=== PATIENT | male | born 1990 | race Caucasian/White ===

== ENCOUNTER 2018-04-27 09:04 | Emergency (ER) | payer OTHER ==
[2018-04-27 09:11] VITALS: BP 157/89
[2018-04-27] MEDS ORDERED: PROPARACAINE 0.5% OPHTH DROPS 15 ML RIGHTEYE STA (09:13)
--- NOTE | 2018-04-27 09:32 | ED Physician Documentation ---
PD HPI OPHTHO - Stated complaint Stated Complaint: OBJECT IN EYE - Chief complaint Chief Complaint: Heent - History obtained from History obtained from: Patient - History of Present Illness Timing - onset: Today Timing - duration: Minutes Timing - details: Abrupt onset, Still present Location: Left Quality / character: Sharp. No: Itching, Burning, Aching, Throbbing Associated symptoms: FB sensation. No: Redness, Swelling, Tearing, Discharge, Matting, Photophobia, Double vision, Decreased vision, Loss of vision, Headache Contributing factors: FB. 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 He continues to have foreign body sensation and he states that he was not welding at the time and he was not grinding. He states that there is a lot of metal dust in the air at his work. Review of Systems Constitutional: denies: Fever Eyes: reports: Irritation. denies: Loss of vision, Decreased vision, Photophobia, Discharge Ears: denies: Ear pain Nose: denies: Rhinorrhea / runny nose, Congestion Throat: denies: Sore throat Respiratory: denies: Cough PD PAST MEDICAL HISTORY - Past Medical History Past Medical History: No - Past Surgical History Past Surgical History: Yes - Present Medications Home Medications: Ambulatory Orders Medication Instructions Recorded Confirmed Neomycin/Poly/Dex Ophth Drops 1 drops LEFTEYE QID #1 bottle 04/27/18 [Maxitrol Ophth Drops] - Allergies Allergies/Adverse Reactions: Allergies Allergy/AdvReac Type Severity Reaction Status Date / Time scallops Allergy Nausea Verified 04/27/18 09:10 - Social History Does the pt smoke?: No Smoking Status: Never smoker Does the pt drink ETOH?: No Does the pt have substance abuse?: No - Immunizations Immunizations are current?: Yes PD ED PE NORMAL - Vitals Vital signs reviewed: Yes (hypertensive ) - General General: Alert and oriented X 3, No acute distress, Well developed/nourished - HEENT HEENT: Atraumatic, PERRL, EOMI, Other (There is minimal injection to the left eye. There is no fb with eversion of the upper lid and there is a tiny "dot" of fluoruscien uptake in the lateral aspect of the left cornea. 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 He appears fairly comfortable and we will place him on some Maxitrol ophthalmic drops. Departure - Departure Disposition: 01 Home, Self Care Clinical Impression: Corneal abrasion, left Qualifiers: Encounter type: initial encounter Qualified Code(s): S05.02XA - Injury of conjunctiva and corneal abrasion without foreign body, left eye, initial encounter Condition: Stable Instructions: ED Eye Injury Corneal Abrasion Follow-Up: Luis A Rosario MD [Provider Admit Priv/Credential] - Prescriptions: Neomycin/Poly/Dex Ophth Drops [Maxitrol Ophth Drops] 1 drops LEFTEYE QID #1 bottle
== END 2018-04-27 09:48 | disposition home or self-care (01) ==
LOC: ED 09:04
DX: S05.02XA Injury of conjunctiva and corneal abrasion without foreign body, left eye, initial encounter (principal); W26.8XXA Contact with other sharp object(s), not elsewhere classified, initial encounter; Y93.9 Activity, unspecified; Y92.69 Other specified industrial and construction area as the place of occurrence of the external cause; Y99.0 Civilian activity done for income or pay
CPT/HCPCS: 99282; 99283; J3490

== ENCOUNTER 2019-10-10 07:35 | Emergency (ER) | payer OTHER ==
[2019-10-10 07:47] VITALS: BP 150/100
--- NOTE | 2019-10-10 08:00 | ED Physician Documentation ---
PD HPI OPHTHO - Stated complaint Stated Complaint: FB LT EYE - Chief complaint Chief Complaint: Heent - History obtained from History obtained from: Patient - History of Present Illness Timing - onset: Yesterday Timing - duration: Days (1) Timing - details: Gradual onset Pain level max: 3 Pain level now: 3 Location: Left Quality / character: Aching Associated symptoms: FB sensation. 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 No: Wears glasses, Wears contacts Similar symptoms before: Has not had sx before Recently seen: Not recently seen Review of Systems Constitutional: denies: Fever Eyes: denies: Loss of vision, Decreased vision Respiratory: denies: Cough GI: denies: Nausea, Vomiting, Diarrhea PD PAST MEDICAL HISTORY - Past Surgical History Past Surgical History: Yes - Present Medications Home Medications: Ambulatory Orders Medication Instructions Recorded Confirmed Neomycin/Poly/Dex Ophth Drops 1 drops LEFTEYE QID #1 bottle 04/27/18 [Maxitrol Ophth Drops] Polymyxin B/Trimeth Ophth Drop 1 drops LEFTEYE Q3H 7 Days #1 10/10/19 [Polytrim Ophth Drops] bottle - Allergies Allergies/Adverse Reactions: Allergies Allergy/AdvReac Type Severity Reaction Status Date / Time scallops Allergy Nausea Verified 04/27/18 09:10 - Social History Does the pt smoke?: No Smoking Status: Never smoker Does the pt drink ETOH?: No Does the pt have substance abuse?: No - Immunizations Immunizations are current?: Yes PD ED PE NORMAL - Vitals Vital signs reviewed: Yes - General General: Alert and oriented X 3, No acute distress, Well developed/nourished - HEENT HEENT: Moist mucous membranes, Other (No visible foreign body. Mild fluorescein uptake on the upper cornea. Eyelids everted. No drainage. Left eye) - Neck Neck: Supple, no meningeal sign - Cardiac Cardiac: RRR - Respiratory Respiratory: No respiratory distress - Derm Derm: Warm and dry - Neuro Neuro: Alert and oriented X 3 Results - Vitals Vitals: Vital Signs - 24 hr 10/10/19 07:44 Temperature 36.7 C Heart Rate 78 Respiratory 18 Rate Blood Pressure 150/100 H O2 Saturation 98 Oxygen O2 Source Room air PD MEDICAL DECISION MAKING - ED course Complexity details: considered differential, d/w patient ED course: Patient with a small corneal abrasion over the left cornea. Will place on Polytrim ophthalmic. No evidence of UV keratitis. No evidence of iritis. No drainage. Patient counseled regarding signs and symptoms for which I believe and urgent re-evaluation would be necessary. Patient with good understanding of and agreement to plan and is comfortable going home at this time This document was made in part using voice recognition software. While efforts are made to proofread this document, sound alike and grammatical errors may occur. Departure - Departure Disposition: Home, Self Care Clinical Impression: Corneal abrasion, left Qualifiers: Encounter type: initial encounter Qualified Code(s): S05.02XA - Injury of conjunctiva and corneal abrasion without foreign body, left eye, initial encounter Condition: Good Instructions: ED Eye Injury Corneal Abrasion Follow-Up: Luis A Rosario MD [Provider Admit Priv/Credential] - Within 3 Days Prescriptions: Polymyxin B/Trimeth Ophth Drop [Polytrim Ophth Drops] 1 drops LEFTEYE Q3H 7 Days #1 bottle Comments: Use the anitbiotic drops as prescribed. Follow up with ophthalmology for further care. Discharge Date/Time: 10/10/19 08:05
== END 2019-10-10 08:05 | disposition home or self-care (01) ==
LOC: ED 07:35
DX: S05.02XA Injury of conjunctiva and corneal abrasion without foreign body, left eye, initial encounter (principal); X58.XXXA Exposure to other specified factors, initial encounter; Y93.89 Activity, other specified; Y99.0 Civilian activity done for income or pay
CPT/HCPCS: 1040M; 99282; 99284

== ENCOUNTER 2024-02-13 11:59 | Observation (INO) ==
--- NOTE | 2024-02-13 12:09 | ED Physician Documentation ---
History of Present Illness Stated complaint Stated Complaint: ABD PX Chief complaint Chief Complaint: Abd Pain History obtained from History obtained from: Patient and EMS Additonal information Additional information: 33-year-old gentleman with heavy alcohol use presents by ambulance for relatively sudden onset epigastric pain that is nonradiating this morning. It was associated with a single episode of emesis after he tried to "choke a bunch of water and take some Pepto-Bismol." He denies fevers. No history of this. No history of abdominal surgeries. No blood in the vomit. Prehospital EKG was normal. Meds/Allgy Home Medications Ambulatory Orders Medication Instructions Recorded Confirmed [id number] 3.5 1 drp LEFTEYE QID ##1 04/27/18 mg/mL-10,000 unit/mL-0.1% eye drops polymyxin B sulfate 10,000 1 drp LEFTEYE Q3H 7 days ##1 10/10/19 unit-trimethoprim 1 mg/mL eye drops Allergies Allergies Allergy/AdvReac Type Severity Reaction Status Date / Time scallops Allergy Nausea Verified 02/13/24 12:11 [facility] Social History Social History Smoking Status: Never smoker Do you feel safe in your home environment?: Yes Suffered physical, verbal, emotional, or financial abuse?: No History of Abuse: No Exam Constitutional normal general appearance and no apparent distress Respiratory breath sounds equal bilaterally, normal respiratory effort and clear to auscultation bilaterally Cardiovascular normal heart rate noted, regular rhythm noted and no murmur Gastrointestinal abdomen soft to palpation upper abd TTP, no surgical signs./ Neurology GCS 15 Results Vitals Vitals: Vital Signs - 24 hr 02/13/24 12:08 02/13/24 12:26 02/13/24 13:11 Temperature 36.7 C Temperature Source Temporal Artery Scan Pulse Rate 94 Respiratory Rate 18 Blood Pressure 123/90 O2 Saturation 100 O2 Source Room air Pain Intensity 8 8 7 02/13/24 13:21 02/13/24 15:03 02/13/24 15:03 Temperature 36.8 C Temperature Source Temporal Artery Scan Pulse Rate 94 Respiratory Rate 18 Blood Pressure 132/87 H O2 Saturation 98 O2 Source Room air Pain Intensity 7 5 Oxygen O2 Source Room air EKG (time done) 1328: EKG releavant findings:: EKG personally interpreted by author of this note. Relevant findings are: Twelve-lead EKG demonstrates normal sinus rhythm with rate of 87, CESAR pattern without ST depression. Labs Labs: Laboratory Tests 02/13/24 12:15 WBC 4.5 L RBC 4.79 Hgb 15.1 Hct 44.2 MCV 92.3 MCH 31.5 H MCHC 34.2 RDW 13.9 Plt Count 266 MPV 9.2 Neut # (Auto) 3.3 Lymph # (Auto) 0.9 L [place] # (Auto) 0.3 Eos # (Auto) 0.0 Baso # (Auto) 0.0 Absolute Nucleated RBC 0.00 Nucleated RBC % 0.0 Sodium 142 Potassium 4.2 Chloride 103 Carbon Dioxide 29 Anion Gap 10.0 BUN 16 Creatinine 0.8 Estimated GFR (MDRD) 112 Glucose 149 H Calcium 8.7 Total Bilirubin 0.5 AST 128 H ALT 115 H Alkaline Phosphatase 91 Total Protein 6.5 Albumin 4.3 Globulin 2.2 Albumin/Globulin Ratio 2.0 Lipase 564 H Ethyl Alcohol 294.6 Rads (name of study) CT abdomen pelvis showing pancreatitis without complication: Relevant Findings:: Final report received and EMP independent interpretation of test PD Medical Decision Making ED course ED course: He presents with epigastric pain radiating up, EKG nonischemic. Difficult to control his pain. He is an alcoholic. Workup demonstrates lymphocytosis, elevated lipase and elevated liver enzymes. Blood alcohol 294 despite him not drinking since midnight last night so presume it was at least 500 then. Difficult to control his pain and I spoke with the hospitalist for admission at 3:08 PM. The patient and family are counseled as to the diagnosis and need for admission. This document was made in part using voice recognition software, while efforts are made to proofread this document, sound alike an grammatical errors may occur. Discharge Plan Discharge Patient Disposition: ED Place in Observation Condition: Serious Clinical Impression: Pancreatitis, Alcoholism
[2024-02-13] MEDS: ONDANSETRON 4 MG/2 ML VIAL IVP STA (12:26)
[2024-02-13] MEDS: HYDROmorphone 1 MG/ML CARPUJECT IVP STA ×2 (12:26→15:34)
[2024-02-13] MEDS: SODIUM CHLORIDE 0.9% 1,000 ML IV STA (12:27)
[2024-02-13 12:42] LABS: BASOPHILS % (AUTO) 0.4 %; HCT - HEMATOCRIT 44.2 % (42.0-52.0); HGB - HEMOGLOBIN 15.1 g/dL (14.0-18.0); LYMPHOCYTES # (AUTO) 0.9 10^3/uL (1.5-3.5); LYMPHOCYTES % (AUTO) 20.7 %; MEAN CORPUSCULAR HEMOGLOBIN 31.5 pg (27.0-31.0); MEAN CORPUSCULAR HGB CONC 34.2 g/dL (32.0-36.0); MEAN CORPUSCULAR VOLUME 92.3 fL (80.0-94.0); MEAN PLATELET VOLUME 9.2 fL (7.4-11.4); MONOCYTES # (AUTO) 0.3 10^3/uL (0.0-1.0); MONOCYTES % (AUTO) 6.2 %; NEUTROPHILS # (AUTO) 3.3 10^3/uL (1.5-6.6); NEUTROPHILS % (AUTO) 72.5 %; PLT - PLATELET COUNT 266 10^3/uL (130-450); RED BLOOD COUNT 4.79 10^6/uL (4.70-6.10); RED CELL DISTRIBUTION WIDTH 13.9 % (12.0-15.0); WHITE BLOOD COUNT 4.5 x10^3/uL (4.8-10.8)
[2024-02-13 12:58] LABS: ALBUMIN 4.3 g/dL (3.2-5.5); BILIRUBIN,TOTAL 0.5 mg/dL (0.2-1.0); CALCIUM 8.7 mg/dL (8.5-10.3); CREATININE 0.8 mg/dL (0.6-1.3); ETOH - ETHANOL 294.6 mg/dL; POTASSIUM 4.2 mmol/L (3.5-4.5); TOTAL PROTEIN 6.5 g/dL (6.4-8.9)
[2024-02-13] MEDS: MORPHINE 10 MG/ML VIAL IVP STA (13:21)
[2024-02-13] MEDS: PANTOPRAZOLE 40 MG VIAL IVP STA (13:22)
[2024-02-13] MEDS ORDERED: iohexoL-300 100 ML VIAL ONE (14:15)
--- NOTE | 2024-02-13 14:57 | CT Report ---
PROCEDURE: CT Abdomen/Pelvis W INDICATIONS: IV only, upper abd pain CONTRAST: omni 300, 100 TECHNIQUE: After the administration of intravenous contrast, a CT scan of the abdomen and pelvis was performed. Images were recorded and evaluated at appropriate window settings. Reformats: coronal and sagittal. F or radiation dose reduction, the following was used: automated exposure control, adjustment of mA and /or kV according to patient size. COMPARISON: None. FINDINGS: Image quality: Diagnostic Lower chest: Basal atelectasis. No pleural effusions. Mildly patulous distal esophagus Liver: Unremarkable Gallbladder and biliary system: Unremarkable, nondilated Pancreas: Mild to moderate peripancreatic edematous fat stranding and fluid Spleen: Nonenlarged Adrenals: 9 mm left adrenal nodule. Kidneys: No solid mass. No hydronephrosis. Vessels and lymph nodes: The main portal vein is patent. No abdominal aortic aneurysm. No pathologic lymph nodes by size criteria. Bowel and peritoneum: No evidence of small bowel obstruction. No pathologic ascites. No drainable abs cess. Nondilated appendix Body wall: Unremarkable Pelvis: Bladder is unremarkable. Prostate is heterogeneous not well assessed on this study Bones: No acute or suspicious osseous findings. IMPRESSION: Acute interstitial pancreatitis. No drainable fluid collection. Other findings above. Reviewed by: Narayan Lujan MD on 02/13/2024 1:56 PM [facility] Approved by: Narayan Lujan MD on 02/13/2024 1:56 PM [facility] Station ID: [id number]
[2024-02-13] MEDS: THIAMINE 100 MG/1 ML 2 ML MDV IVP STA (15:33)
--- NOTE | 2024-02-13 15:42 | HISTORY & PHYSICAL EXAMINATION ---
Chief Complaint Chief Complaint Chief Complaint: Abdominal pain History of Present Illness Admitted From Admitted From:: Home History Obtained From History obtained from: EMR, patient interview Exam Limitations: None History of Present Illness HPI Comment/Other: 33-year-old male with PMH significant for heavy alcohol use presents with sudden onset epigastric pain this morning. He did have 1 episode of emesis after he tried to drink water and take Pepto-Bismol. He reports that between him and his girlfriend, they drink 12 beers and 1/5 of liquor every night. He reports that he wants to stop drinking. Last drink was at 2 AM today In the ER, lipase was checked and found to be 564. CT abdomen/pelvis was performed which showed acute interstitial pancreatitis without drainable fluid collection as well as a 9 mm left adrenal nodule. Hospitalist was contacted for admission for acute pancreatitis and impending delirium tremens Meds/Allgy Home Medications Ambulatory Orders Medication Instructions Recorded Confirmed [id number] 3.5 1 drp LEFTEYE QID ##1 04/27/18 mg/mL-10,000 unit/mL-0.1% eye drops polymyxin B sulfate 10,000 1 drp LEFTEYE Q3H 7 days ##1 10/10/19 unit-trimethoprim 1 mg/mL eye drops Allergies Allergies Allergy/AdvReac Type Severity Reaction Status Date / Time scallops Allergy Nausea Verified 02/13/24 12:11 PFSH Social History Social History Smoking Status: Never smoker Do you feel safe in your home environment?: Yes Suffered physical, verbal, emotional, or financial abuse?: No History of Abuse: No Review of Systems Status of ROS: 10 or more systems reviewed and unremarkable except as noted in history and below Constitutional Denies: Fever or Chills Cardiovascular Denies: Irregular heart rate, chest pain, palpitations or shortness of breath with exertion Respiratory Denies: Shortness of breath or Cough Gastrointestinal Reports: Abdominal pain, Nausea and Vomiting Exam Constitutional normal general appearance and no apparent distress HENMT normocephalic, head/scalp atraumatic and oral mucous membranes abnormal (dry) Eyes PERRL Neck/C-Spine visual inspection normal Chest inspection of chest normal Respiratory breath sounds equal bilaterally Cardiovascular normal heart rate noted Gastrointestinal tender to palpation (mild) (Primary left upper quad) Extremities normal to inspection and normal to palpation 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 for tonight (2) Alcohol abuse with alcohol-induced disorder: Plan: CIWA protocol with as needed Ativan Librium scheduled 25 mg Social work consult Banana bag Daily MVI, thiamine, folate Last drink 02/13/2024 at 0200 I expect withdrawal to be worse 48 hours after last drink Plan Placed in observation Full code He names his girlfriend as his surrogate decision-maker Lab Results Lab results reviewed: Yes 02/13/24 12:15 02/13/24 12:15 Core Measures Anticipated LOS I expect patient to be DC'd or transferred within 96 hours.: Yes DVT/VTE - Prophylaxis VTE/DVT Device ordered at admit?: No VTE/DVT Prophylaxis med ordered at admit?: Yes
[2024-02-13] MEDS ORDERED: ONDANSETRON ODT 4 MG TABLET TL PRN (16:28)
[2024-02-13] MEDS ORDERED: SODIUM CHLORIDE FLUSH 0.9% 10 ML SYRINGE IVP PRN (16:28)
[2024-02-13] MEDS ORDERED: ONDANSETRON 4 MG/2 ML VIAL IVP PRN (16:28)
[2024-02-13] MEDS ORDERED: LORazepam 2 MG/ML VIAL IVP PRN (16:28)
[2024-02-13 17:07] LABS: BASOPHILS % (AUTO) 0.1 %; EOSINOPHILS % (AUTO) 0.1 %; HCT - HEMATOCRIT 42.2 % (42.0-52.0); HGB - HEMOGLOBIN 14.3 g/dL (14.0-18.0); LYMPHOCYTES % (AUTO) 7.1 %; MEAN CORPUSCULAR HEMOGLOBIN 31.4 pg (27.0-31.0); MEAN CORPUSCULAR HGB CONC 33.9 g/dL (32.0-36.0); MEAN CORPUSCULAR VOLUME 92.5 fL (80.0-94.0); MONOCYTES # (AUTO) 0.9 10^3/uL (0.0-1.0); NEUTROPHILS # (AUTO) 11.4 10^3/uL (1.5-6.6); NEUTROPHILS % (AUTO) 85.5 %; PLT - PLATELET COUNT 244 10^3/uL (130-450); RED BLOOD COUNT 4.56 10^6/uL (4.70-6.10); RED CELL DISTRIBUTION WIDTH 14.2 % (12.0-15.0); WHITE BLOOD COUNT 13.4 x10^3/uL (4.8-10.8)
[2024-02-13] MEDS: iohexoL-300 100 ML VIAL IVP ONE (17:07)
[2024-02-13 17:09] LABS: INR 1.2 (0.8-1.2); PT - PROTHROMBIN TIME 13.5 secs (9.9-12.6)
[2024-02-13 17:17] LABS: ALBUMIN 4.1 g/dL (3.2-5.5); ALBUMIN/GLOBULIN RATIO 1.4 (1.0-2.2); BILIRUBIN,TOTAL 0.5 mg/dL (0.2-1.0); CALCIUM 7.8 mg/dL (8.5-10.3); CREATININE 0.8 mg/dL (0.6-1.3); POTASSIUM 4.1 mmol/L (3.5-4.5); TOTAL PROTEIN 7.1 g/dL (6.4-8.9)
[2024-02-13] MEDS: MULTIVITAMIN IV SCH (17:39)
[2024-02-13] MEDS: THIAMINE IV SCH (17:39)
[2024-02-13] MEDS: chlordiazePOXIDE 25 MG CAPSULE PO SCH (17:39)
[2024-02-13] MEDS: [UNRECOGNIZED DRUG - OTHER] IV SCH (17:39)
[2024-02-13] MEDS: MAGNESIUM SULFATE IV SCH (17:39)
[2024-02-13] MEDS: SODIUM CHLORIDE FLUSH 0.9% 10 ML SYRINGE IVP SCH (18:31)
[2024-02-13] MEDS: MAG HYDROX/AL HYDROX/SIMETH 30 ML UDC PO PRN (19:03)
[2024-02-13] MEDS: SODIUM CHLORIDE 0.9% 1,000 ML IV SCH (19:04)
[2024-02-14] MEDS: DEXTROSE 5%-0.45% NACL 1,000 ML IV STA (01:28)
[2024-02-14] MEDS: LIDOCAINE VISCOUS 2% 15 ML UDC MM PRN (04:52)
[2024-02-14 06:04] LABS: BASOPHILS % (AUTO) 0.3 %; EOSINOPHILS % (AUTO) 0.2 %; HCT - HEMATOCRIT 39.9 % (42.0-52.0); HGB - HEMOGLOBIN 13.2 g/dL (14.0-18.0); LYMPHOCYTES # (AUTO) 1.5 10^3/uL (1.5-3.5); LYMPHOCYTES % (AUTO) 12.1 %; MEAN CORPUSCULAR HEMOGLOBIN 30.8 pg (27.0-31.0); MEAN CORPUSCULAR HGB CONC 33.1 g/dL (32.0-36.0); MEAN PLATELET VOLUME 9.3 fL (7.4-11.4); MONOCYTES # (AUTO) 1.1 10^3/uL (0.0-1.0); MONOCYTES % (AUTO) 8.7 %; NEUTROPHILS % (AUTO) 78.5 %; PLT - PLATELET COUNT 226 10^3/uL (130-450); RED BLOOD COUNT 4.29 10^6/uL (4.70-6.10); RED CELL DISTRIBUTION WIDTH 14.1 % (12.0-15.0); WHITE BLOOD COUNT 12.7 x10^3/uL (4.8-10.8)
[2024-02-14 06:19] LABS: ALBUMIN 3.6 g/dL (3.2-5.5); ALBUMIN/GLOBULIN RATIO 1.4 (1.0-2.2); CALCIUM 7.3 mg/dL (8.5-10.3); CREATININE 0.8 mg/dL (0.6-1.3); MAGNESIUM 2.1 mg/dL (1.7-2.3); PHOSPHORUS 2.1 mg/dL (2.5-5.0); POTASSIUM 4.1 mmol/L (3.5-4.5); TOTAL PROTEIN 6.1 g/dL (6.4-8.9)
[2024-02-14] MEDS: THIAMINE 100 MG TABLET PO SCH (08:13)
[2024-02-14] MEDS: ENOXAPARIN 40 MG/0.4 ML SYRINGE SUBQ SCH (08:13)
[2024-02-14] MEDS: PRENATAL VITAMIN TABLET PO SCH (08:13)
[2024-02-14] MEDS: GI COCKTAIL 120 ML BOTTLE PO PRN (09:55)
--- NOTE | 2024-02-14 11:14 | PHARMACY PROGRESS NOTE ---
Best Possible Medication History Admit Date and Time: 02/13/24 1532 Home Medications Medication Instructions Recorded Confirmed Type acetaminophen 325 mg tablet 325 mg PO Q4H PRN fever or pain 02/14/24 02/14/24 History ibuprofen 200 mg tablet (IBU-200) 200 mg PO Q8H PRN fever or pain 02/14/24 02/14/24 History Processed by: Pharmacy (Medication Reconciliation completed by pharmacy intake coordinatorAlonzo) Medications reviewed in ED?: No Medication History completed: Yes Patient Interview: Completed Secondary Source(s): Insurance records [facility] Statement: As the person ultimately responsible for medication therapy, providers are able to order a medication from an existing home medication list in [facility] via the "Reconcile Routine" prior to Confirmation of that medication by customer support coordinator. Such practice is discouraged except when the physician, in their clinical judgment, deems that a medical need exists for a medication without regard to previous use.
[2024-02-14] MEDS: NEUTRA-PHOS 250 MG TABLET PO SCH (11:52)
--- NOTE | 2024-02-14 12:32 | PROVIDER PROGRESS NOTE ---
Subjective Prog Note Date Prog Note Date: 02/14/24 Subjective Pt reports feeling: Improved Current Medications Current Medications Current Medications: Current Medications Generic Name Dose Route Start Last Admin Trade Name Freq PRN Reason Stop Dose Admin Al Hydroxide/Mg Hydroxide 30 ml 02/13/24 18:26 02/13/24 23:51 Mag Hydrox/Al Hydrox/Simeth 30 Ml Udc PO 30 ml Q4HR PRN Administration INDIGESTION Chlordiazepoxide HCl 10 mg 02/14/24 12:28 Chlordiazepoxide 5 Mg Capsule PO Q6H BRODIE Enoxaparin Sodium 40 mg 02/14/24 09:00 02/14/24 08:18 Enoxaparin 40 Mg/0.4 Ml Syringe SUBQ Not Given DAILY BRODIE Sodium Chloride 1,000 mls @ 200 mls/hr 02/13/24 16:28 02/14/24 10:37 Normal Saline 0.9% IV 200 mls/hr .Q5H BRODIE Administration Lidocaine HCl 5 ml 02/14/24 03:19 02/14/24 11:52 Lidocaine Viscous 2% 15 Ml Udc MM 5 ml Q4H PRN Administration Mouth Sore Pain Lorazepam 2 mg 02/13/24 16:28 Lorazepam 2 Mg/Ml Vial IVP Q30M PRN CIWA >8 Protocol Multi-Ingredient Mouthwash/Gargle 30 ml 02/13/24 17:40 02/14/24 09:55 Gi Cocktail 120 Ml Bottle PO 30 ml Q4H PRN Administration Abdominal Pain Ondansetron HCl 4 mg 02/13/24 16:28 Ondansetron Odt 4 Mg Tablet TL Q6HR PRN Nausea / Vomiting Ondansetron HCl 4 mg 02/13/24 16:28 Ondansetron 4 Mg/2 Ml Vial IVP Q6HR PRN Nausea / Vomiting Multivit/Folic Acid/Iron 1 tab 02/14/24 09:00 02/14/24 08:13 Vitamin Tablet PO 1 tab DAILY BRODIE Administration Sodium Chloride 10 ml 02/13/24 16:28 Sodium Chloride Flush 0.9% 10 Ml Syringe IVP PRN PRN NEEDED PER PROVIDER ORDERS Sodium Chloride 10 ml 02/13/24 17:00 02/14/24 09:54 Sodium Chloride Flush 0.9% 10 Ml Syringe IVP Not Given 0100,0900,1700 [facility] Sodium Phosphate 250 mg 02/14/24 12:00 02/14/24 11:52 Neutra-Phos 250 Mg Tablet PO 250 mg TIDWM BRODIE Administration Thiamine HCl 100 mg 02/14/24 09:00 02/14/24 08:13 Thiamine 100 Mg Tablet PO 100 mg DAILY BRODIE Administration Objective Vital Signs/Intake & Output Reviewed Vital Signs: Yes Vital Signs: Vital Signs x48h Temp Pulse Resp BP Pulse Ox 02/14/24 08:36 36.7 C 94 24 150/106 H 98 Intake & Output: Intake & Output 02/11/24 02/12/24 02/13/24 02/14/24 23:59 23:59 23:59 23:59 Intake Total 297 / 297 Balance 2973 / 297 Weight (kg) 69.5 kg Objective General Appearance: positive No acute distress and Alert Eyes Bilateral: positive Normal inspection and PERRL ENT: positive ENT inspection nml and No signs of dehydration Neck: positive No JVD Respiratory: positive Breath sounds nml Cardiovascular: positive Regular rate & rhythm Abdomen: positive Non-tender Skin: positive Color nml Extremities: positive Non-tender Neurologic/Psychiatric: positive Oriented x3 and Depressed mood/affect Lab Results 02/14/24 05:30 02/14/24 05:30 Other Labs: Lab Results x24hrs 02/14/24 02/13/24 02/13/24 Range/Units 05:30 16:55 12:15 WBC 12.7 H 13.4 H 4.5 L (4.8-10.8) x10^3/uL RBC 4.29 L 4.56 L 4.79 (4.70-6.10) 10^6/uL Hgb 13.2 L 14.3 15.1 (14.0-18.0) g/dL Hct 39.9 L 42.2 44.2 (42.0-52.0) % MCV 93.0 92.5 92.3 (80.0-94.0) fL MCH 30.8 31.4 H 31.5 H (27.0-31.0) pg MCHC 33.1 33.9 34.2 (32.0-36.0) g/dL RDW 14.1 14.2 13.9 (12.0-15.0) % Plt Count 226 244 266 (130-450) 10^3/uL MPV 9.3 9.0 9.2 (7.4-11.4) fL Neut # (Auto) 10.0 H 11.4 H 3.3 (1.5-6.6) 10^3/uL Lymph # (Auto) 1.5 1.0 L 0.9 L (1.5-3.5) 10^3/uL [place] # (Auto) 1.1 H 0.9 0.3 (0.0-1.0) 10^3/uL Eos # (Auto) 0.0 0.0 0.0 (0.0-0.7) 10^3/uL Baso # (Auto) 0.0 0.0 0.0 (0.0-0.1) 10^3/uL Absolute Nucleated RBC 0.00 0.00 0.00 x10^3/uL Nucleated RBC % 0.0 0.0 0.0 /100WBC PT 13.5 H (9.9-12.6) secs INR 1.2 (0.8-1.2) Sodium 137 142 142 (135-145) mmol/L Potassium 4.1 4.1 4.2 (3.5-4.5) mmol/L Chloride 103 100 L 103 (101-111) mmol/L Carbon Dioxide 28 29 29 (21-32) mmol/L Anion Gap 6.0 13.0 10.0 (6-13) BUN 13 15 16 (6-20) mg/dL Creatinine 0.8 0.8 0.8 (0.6-1.3) mg/dL Estimated GFR (MDRD) 112 112 112 (>89) Glucose 106 H 158 H 149 H (74-104) mg/dL Calcium 7.3 L 7.8 L 8.7 (8.5-10.3) mg/dL Phosphorus 2.1 L (2.5-5.0) mg/dL Magnesium 2.1 (1.7-2.3) mg/dL Total Bilirubin 1.0 0.5 0.5 (0.2-1.0) mg/dL AST 77 H 105 H 128 H (10-42) IU/L ALT 80 H 107 H 115 H (10-60) IU/L Alkaline Phosphatase 85 93 91 (42-121) IU/L Total Protein 6.1 L 7.1 6.5 (6.4-8.9) g/dL Albumin 3.6 4.1 4.3 (3.2-5.5) g/dL Globulin 2.5 3.0 2.2 (2.1-4.2) g/dL Albumin/Globulin Ratio 1.4 1.4 2.0 (1.0-2.2) Lipase 564 H (11-82) U/L Ethyl Alcohol 294.6 mg/dL Assessment/Plan Problem List (1) Alcohol-induced pancreatitis: Impression: NS at 200 Advance to clear liquid Dilaudid 0.5 mg IV every 2 hours as needed for pain (2) Alcohol abuse with alcohol-induced disorder: Impression: CIWA protocol with as needed Ativan Has been on scheduled Librium 25 mg every 6 Reported some blurry vision, will de-escalate his Librium to 10 mg every 6 Social work consult He reported to social work this morning that he is not ready to quit drinking Continue daily MVI, thiamine, folate Last drink 02/13/2024 2 AM I expect tonight will be the worst of his withdrawal
[2024-02-14] MEDS: HYDROmorphone 0.5 MG/0.5 ML SYRINGE IVP PRN (13:10)
[2024-02-14] MEDS: chlordiazePOXIDE 5 MG CAPSULE PO SCH (15:46)
[2024-02-15 05:59] LABS: BASOPHILS % (AUTO) 0.2 %; EOSINOPHILS % (AUTO) 0.3 %; HCT - HEMATOCRIT 35.7 % (42.0-52.0); HGB - HEMOGLOBIN 12.1 g/dL (14.0-18.0); LYMPHOCYTES # (AUTO) 1.1 10^3/uL (1.5-3.5); LYMPHOCYTES % (AUTO) 11.5 %; MEAN CORPUSCULAR HEMOGLOBIN 31.1 pg (27.0-31.0); MEAN CORPUSCULAR HGB CONC 33.9 g/dL (32.0-36.0); MEAN CORPUSCULAR VOLUME 91.8 fL (80.0-94.0); MEAN PLATELET VOLUME 9.3 fL (7.4-11.4); MONOCYTES # (AUTO) 1.1 10^3/uL (0.0-1.0); MONOCYTES % (AUTO) 11.1 %; NEUTROPHILS # (AUTO) 7.6 10^3/uL (1.5-6.6); NEUTROPHILS % (AUTO) 76.6 %; PLT - PLATELET COUNT 190 10^3/uL (130-450); RED BLOOD COUNT 3.89 10^6/uL (4.70-6.10); RED CELL DISTRIBUTION WIDTH 13.2 % (12.0-15.0); WHITE BLOOD COUNT 9.9 x10^3/uL (4.8-10.8)
[2024-02-15 06:13] LABS: ALBUMIN 3.3 g/dL (3.2-5.5); ALBUMIN/GLOBULIN RATIO 1.4 (1.0-2.2); BILIRUBIN,TOTAL 1.3 mg/dL (0.2-1.0); CALCIUM 7.4 mg/dL (8.5-10.3); CREATININE 0.7 mg/dL (0.6-1.3); POTASSIUM 3.3 mmol/L (3.5-4.5); TOTAL PROTEIN 5.7 g/dL (6.4-8.9)
[2024-02-15] MEDS: POTASSIUM CHLORIDE 20 MEQ TABLET PO ONE (09:46)
--- NOTE | 2024-02-15 16:20 | Discharge Summary ---
Discharge Summary Admit Date: 02/13/24 Discharge Date: 02/15/24 Discharging Provider: Feliciano Flowers NP Primary Care Provider: Dilip Bunn Code Status: Attempt Resuscitation DIAGNOSES Admission Diagnoses: Alcohol induced pancreatitis Alcohol abuse with alcohol-induced disorder Discharge Diagnoses with Status of Each Condition: Alcohol-induced pancreatitisactive Alcohol abuse with alcohol-induced disorderchronic HPI History of Present Illness: 33-year-old male with PMH significant for heavy alcohol use presents with sudden onset epigastric pain this morning. He did have 1 episode of emesis after he tried to drink water and take Pepto-Bismol. He reports that between him and his girlfriend, they drink 12 beers and 1/5 of liquor every night. He reports that he wants to stop drinking. Last drink was at 2 AM today In the ER, lipase was checked and found to be 564. CT abdomen/pelvis was performed which showed acute interstitial pancreatitis without drainable fluid collection as well as a 9 mm left adrenal nodule. Hospitalist was contacted for admission for acute pancreatitis and impending delirium tremens HOSPITAL COURSE Hospital Course: He was placed in observation and started on aggressive IV fluid resuscitation with normal saline. He was started on CIWA protocol with multivitamin, thiamine, folate, as needed Ativan, scheduled Librium. Today, his abdominal pain is much improved. He ate a sandwich with only mild abdominal discomfort. He is being discharged home to follow-up with PCP within 2 weeks. He has been strongly encouraged by multiple members of the staff including myself to quit drinking. He endorses to me that he is ready to quit, but to social work that he is not. ALLERGIES Allergies Allergy/AdvReac Type Severity Reaction Status Date / Time scallops Allergy Nausea Verified 02/13/24 12:11 MEDICATIONS Ambulatory Orders Medication Instructions Recorded Confirmed acetaminophen 325 mg tablet 325 mg PO Q4H PRN fever or pain 02/14/24 02/14/24 ibuprofen 200 mg tablet (IBU-200) 200 mg PO Q8H PRN fever or pain 02/14/24 02/14/24 oxycodone 5 mg tablet,oral ONLY 5 mg PO Q8H PRN pain #10 ea 02/15/24 (not feeding tubes) (RoxyBond) PHYSICAL EXAM AT DISCHARGE General Appearance: positive No acute distress and Alert Eyes Bilateral: positive Normal inspection and PERRL ENT: positive No signs of dehydration Neck: positive Nml inspection and No JVD Respiratory: positive Chest non-tender and No respiratory distress Cardiovascular: positive Regular rate & rhythm and No murmur Peripheral Pulses: positive 2+ Abdomen: positive Non-tender Skin: positive Color nml and No rash Extremities: positive Non-tender Neurologic/Psychiatric: positive Oriented x3 LABS 02/15/24 05:43 02/15/24 05:43 FOLLOW UP Follow Up: With PCP within 2 weeks TIME SPENT Time Spent in Discharge (Minutes): 25 Discharge Plan Discharge Patient Disposition: Home, Self Care Condition: Stable Medically Cleared Date:: 02/15/24 Prescriptions: New oxycodone [RoxyBond] 5 mg tablet, oral only 5 mg PO Q8H PRN (Reason: pain) Qty: 10 0RF Continued acetaminophen 325 mg tablet 325 mg PO Q4H PRN (Reason: fever or pain) ibuprofen [IBU-200] 200 mg tablet 200 mg PO Q8H PRN (Reason: fever or pain) Diet: Soft Interventions: Belongings Inventory Last Done: 02/13/24 21:29 Discharge Last Done: 02/15/24 17:00 Discharge Checklist - Nursing Last Done: 02/15/24 17:00 Health Concerns: You are a 33-year-old male with history of alcohol abuse disorder with alcoholic pancreatitis who came in for alcoholic pancreatitis. You were treated with aggressive IV fluid resuscitation as well as IV pain medication. Your pancreatitis has mostly resolved. You were able to keep down solid food without significant abdominal pain. I would suggest you go home and have a very bland diet for the next few days, as your pancreas continues to recover. Drink plenty of water. I would strongly encourage you to stop drinking for the following reasons: Large volume alcohol abuse can lead to esophageal varices, which can burst and cause dangerous upper GI bleeding Pancreatitis, if caught too late, can cause acute respiratory distress requiring intubation and ventilation Please stay as active as possible, drink plenty of water, continue to perform all activities of daily living. I am giving you a note saying that we gave you IV pain medications so that it will be explained on any drug test you may or may not have to perform for work Print Language: Irish Patient Instructions: Alcoholism Get Help Stand Alone Forms: PCP List
[2024-02-15 16:53] VITALS: BP 154/89; TEMP 98.8; O2SAT 98
== END 2024-02-15 17:10 | disposition home or self-care (01) ==
LOC: ED 11:59 → MS2 11:59
PROVIDERS: ADMIT Nurse Practitioner Acute Care; ATTEND Nurse Practitioner Acute Care
DX: K85.20 Alcohol induced acute pancreatitis without necrosis or infection; E27.9 Disorder of adrenal gland, unspecified; Y90.8 Blood alcohol level of 240 mg/100 ml or more; F10.288 Alcohol dependence with other alcohol-induced disorder